=== PATIENT | female | born 1955 | race Caucasian/White ===

== ENCOUNTER → 2017-07-08 | Outpatient (CLI) | payer MEDICARE, MEDICAID ==
[~2017-07-08] MED LIST: ALBU8.5H12 IH; ASPI81TA94 PO; ATOR40TA69 PO; BACDS PO; CEPH-312 PO; CLO5 PO; CLOP75TA PO; CYCL10TA29 PO; CYCL5.5D IO; DIA5 PO; DIAZ-1 PO; Docusate Sodium PO; ENAL2.5T52 PO; EPIN0.3P15 IM; ESC10 PO; ESCI20TA38 PO; HYDR-3724 PO; HYDR-4309 PO; IBU600 PO; IBUP-56 PO; LOR5 PO; LOR5/325 PO; METO-224 PO; METR-1 PO; MID PO; MULT-806 PO; MULT-820 PO; MULT-977 PO; NIC21T TOP; NICO-180 TD; NITR0.4T3 SL; NO MEDS AT THIS TIME; OXYGENHOME INH; PANT40TA65 PO; PER PO; PRE20 PO; RANI-324 PO; ROBC PO; SULF-198 PO; THIA100T55 PO; TRAZ-133 PO; TRAZ50 PO; UBID50CA24 PO; VAR1 PO; VARE1TAB4 PO
[2017-07-08 12:09] LABS: PLATELET COUNT, AUTOMATED 325 K/uL (150-450)
== END ==
LOC: LAB 11:02
PROVIDERS: ATTEND Nurse Practitioner Family
DX: R10.13 Epigastric pain (principal); K21.9 Gastro-esophageal reflux disease without esophagitis
CPT/HCPCS: 36415; 82040; 82150; 82247; 82310; 82374; 82435; 82565; 82947; 83690; 84075; 84132; 84155; 84295; 84450; 84460; 84520; 85025; 86677

== ENCOUNTER → 2017-07-16 | Outpatient (CLI) | payer MEDICARE, MEDICAID ==
[~2017-07-16] MED LIST changes: -RANI-324 PO; +RANI-366 PO
--- NOTE | 2017-07-16 17:08 | RADIOLOGY IMAGING REPORT ---
FACILITY: [facility] - [place], [place] PATIENT NAME: Colleen Pastor : 1955 MR: [id number] V: [id number] EXAM DATE: ORDERING PHYSICIAN: GRUPO MENDOZA TECHNOLOGIST: Location: [facility] Patient: Colleen Pastor : 1955 Visit/Account:[id number] Date of Sevice: 07/16/2017 THYROID HISTORY: Right thyroid nodule COMPARISON: May 11, 2015 FINDINGS: SIZE: Normal. Right lobe: 4.8 x 1.7 x 1.4 cm Left lobe: 4.8 x 1.3 x 1.5 cm Isthmus: 1 mm PARENCHYMA: Homogeneous. NODULES: Right lobe: * In the mid to inferior right lobe there is a relatively well-circumscribed hypoechoic nodule measu ring 1.2 x 1.2 x 0.8 cm Left lobe: * Several tiny cysts are identified in the inferior left lobe Isthmus: * None discrete. VASCULARITY: Within normal limits. ADDITIONAL FINDINGS: None. IMPRESSION: In the mid to inferior right lobe there is a well-circumscribed hypoechoic nodule measuring 1.2 x 1.2 x 0.8 cm that appears relatively unchanged in size when compared the prior study REFERENCE: 2015 [place] [employer] Management Guidelines for Adult Patients with Thyroid Nodules and D ifferentiated Thyroid Cancer: The [place] [employer]roid [employer] Guidelines Task Force on Thyroid Nodul es and Differentiated Thyroid Cancer. SONOGRAPHIC PATTERNS: * Benign: Purely cystic nodules (no solid component); estimated risk of malignancy <1 percent; no bi opsy recommended. * Very Low Suspicion: Spongiform or partially cystic nodules without any of the sonographic features described in low, intermediate, or high suspicion patterns; estimated risk of malignancy <3 percent; consider FNA at > 2 cm (Observation without FNA is also a reasonable option). * Low Suspicion: Isoechoic or hyperechoic solid nodule, or partially cystic nodule with eccentric so lid areas, without microcalcification, irregular margin or ETE (extra-thyroidal extension), or taller than wide shape; estimated risk of malignancy 5-10 percent; recommend FNA at >1.5 cm. * Intermediate Suspicion: Hypoechoic solid nodule with smooth margins without microcalcifications, E TE (extra-thyroidal extension), or taller than wide shape; estimated risk of malignancy 10-20 percent ; recommend FNA at > 1 cm. * High Suspicion: Solid hypoechoic nodule or solid hypoechoic component of a partially cystic nodule with one or more of the following features: irregular margins (infiltrative, microlobulated), microc alcifications, taller than wide shape, rim calcifications with small extrusive soft tissue component, evidence of ETE (extra-thyroidal extension); estimated risk of malignancy >70-90 percent; recommend FNA at > 1 cm. NOTES: * Although a sonographically suspicious subcentimeter thyroid nodule without evidence of extrathyroi johann extension or sonographically suspicious lymph nodes may be observed with close sonographic follow -up rather than pursuing immediate FNA, patient age and preference may modify decision-making. A > 50% interval increase in nodule volume and/or development of new suspicious sonographic features are felt to be a valid reasons for potential re-aspiration of a nodule previously shown to have benig n FNA cytology. Report Dictated By: Gisel Oscar MD at 07/16/2017 4:56 PM Report E-Signed By: Gisel Oscar MD at 07/16/2017 5:04 PM WSN:[email or web address]
== END ==
LOC: US 01:58
PROVIDERS: ATTEND Nurse Practitioner Family
DX: E04.9 Nontoxic goiter, unspecified (principal)
CPT/HCPCS: 76536

== ENCOUNTER → 2017-09-25 | Outpatient (CLI) | payer MEDICARE, MEDICAID ==
[2017-09-25 11:41] LABS: PLATELET COUNT, AUTOMATED 270 K/uL (150-450)
[2017-09-25 11:49] LABS: INR 0.94
[2017-09-25 12:31] LABS: LDL CHOLESTEROL 74 mg/dl
== END ==
LOC: LAB 11:04
PROVIDERS: ATTEND Nurse Practitioner Family
DX: E78.5 Hyperlipidemia, unspecified (principal); G47.33 Obstructive sleep apnea (adult) (pediatric); Z99.89 Dependence on other enabling machines and devices; Z72.0 Tobacco use; Z79.899 Other long term (current) drug therapy
CPT/HCPCS: 36415; 82040; 82247; 82310; 82374; 82435; 82465; 82565; 82947; 83718; 84075; 84132; 84155; 84295; 84450; 84460; 84478; 84520; 85025; 85610

== ENCOUNTER → 2017-10-19 | Outpatient (CLI) | payer MEDICARE, MEDICAID ==
--- NOTE | 2017-10-19 12:00 | RADIOLOGY IMAGING REPORT ---
FACILITY: [facility] PATIENT NAME: Colleen Pastor : 1955 MR: [id number] V: [id number] EXAM DATE: ORDERING PHYSICIAN: SUSANNAH ELIZALDE TECHNOLOGIST: Location: [facility] - [place] Patient: Colleen Pastor : 1955 Visit/Account:[id number] Date of Sevice: 10/19/2017 CAROTID HISTORY: Fall, hemisphere carotid artery syndrome, appear hyper cholesterolemia COMPARISON: None. FINDINGS: Grayscale, duplex and color Doppler interrogation of the extracranial carotid and vertebral arteries was performed bilateral. On the right, peak systolic velocities within the common and internal carotid arteries are 106 and 11 1 cm/sec respectively. A small amount of plaque identified at the right carotid bulb and a small shanda d plaque identified in the proximal right internal carotid artery. Antegrade flow within the common, internal and external carotid arteries as well as vertebral artery. ICA/CCA ratio 1.1. On the left, peak systolic velocities within the common and internal carotid arteries are 109 and 89 cm/sec respectively. Small amount of plaque identified at the left carotid bulb and proximal left in ternal carotid artery. Antegrade flow within the common, internal and external carotid arteries as w ell as vertebral artery. ICA/CCA ratio 1. IMPRESSION: Small amount of plaque identified at the carotid bulbs and proximal internal carotid arteries althoug h no hemodynamically significant lesions identified by velocity criteria Velocity criteria are extrapolated from diameter data as defined by the Society of Radiologists in [facility] Consensus Conference Radiology 2003; 229;340-346 Report Dictated By: Gisel Oscar MD at 10/19/2017 11:55 AM Report E-Signed By: Gisel Oscar MD at 10/19/2017 11:57 AM WSN:[email or web address]
== END ==
LOC: US 01:09
PROVIDERS: ATTEND Internal Medicine
DX: I65.23 Occlusion and stenosis of bilateral carotid arteries (principal); I07.1 Rheumatic tricuspid insufficiency; I34.0 Nonrheumatic mitral (valve) insufficiency
CPT/HCPCS: 93306; 93880

== ENCOUNTER → 2017-12-28 | Outpatient (CLI) | payer MEDICARE, MEDICAID | LOC: LAB 09:34 | PROVIDERS: ATTEND Nurse Practitioner Family | DX: Z11.59 Encounter for screening for other viral diseases (principal) | CPT/HCPCS: 36415; G0472; 86803 ==

== ENCOUNTER 2018-03-04 08:00 | Outpatient (RCR) | payer MEDICARE, MEDICAID ==
[~2018-03-04 08:00] MED LIST changes: -HYDR-4309 PO; +HYDR-653 PO
[2018-03-12] MEDS ORDERED: IOPAMIDOL 76% 50 ML INFUS BTL 100 ML ONE (08:53)
--- NOTE | 2018-03-12 10:03 | RADIOLOGY IMAGING REPORT ---
FACILITY: [facility] - [place] PATIENT NAME: Colleen Pastor : 1955 MR: [id number] V: [id number] EXAM DATE: ORDERING PHYSICIAN: GRUPO MENDOZA TECHNOLOGIST: Location: [facility] Patient: Colleen Pastor : 1955 Visit/Account:[id number] Date of Sevice: 03/12/2018 CHEST W CONTRAST History: Pulmonary nodule follow-up TECHNIQUE: Contiguous axial images were performed through the chest to the level of the adrenal gla nds following the administration of IV contrast. Coronal and sagittal reformatting was also perform ed.Dose Lowering Technique One of the following dose optimization techniques was utilized in the performance of this exam: Autom ated exposure control; adjustment of the mA and/or kV according to the patient's size; or use of an i terative reconstruction technique. Specific details can be referenced in the facility's radiology C T exam operational policy. Contrast: 75 mL Isovue-370 COMPARISON STUDIES: January 07, 2017. Lungs / Pleura: Mild multisegmental scarring has remained stable.. Previously noted 4 mm noncalcified nodule left lower lobe has remained stable best seen on image 72 o f series 3 Previously noted 4 mm posterior right lower lobe nodule now measures 3 mm. No new pulmonary nodules are identified Mediastinum/nodes: Small pretracheal and AP window and hilar lymph nodes have remained stable. Heart and vessels: Coronary artery stent Musculoskeletal / Body wall: Gentle scoliosis of the thoracic spine with spondylotic changes again seen incompletely imaged are postsurgical changes of the lower cervical spine Upper abdomen: Small hiatal hernia IMPRESSION: Small bilateral lower lobe pulmonary nodules have remained stable and are of doubtful significance Mild mediastinal and hilar adenopathy has remained stable Small hiatal hernia Report Dictated By: Gisel Oscar MD at 03/12/2018 9:52 AM Report E-Signed By: Gisel Oscar MD at 03/12/2018 10:00 AM WSN:GARRISON
== END 2018-03-12 18:00 | disposition home or self-care (01) ==
LOC: CT 08:00 → EDSTATUS 10:46 → CT 10:47
PROVIDERS: ATTEND Nurse Practitioner Family
DX: K44.9 Diaphragmatic hernia without obstruction or gangrene (principal); R91.8 Other nonspecific abnormal finding of lung field; M41.84 Other forms of scoliosis, thoracic region; Z95.5 Presence of coronary angioplasty implant and graft
CPT/HCPCS: 36415; 71260; 82565; Q9967

== ENCOUNTER → 2018-09-08 | Outpatient (CLI) | payer MEDICARE, MEDICAID ==
[~2018-09-08] MED LIST changes: -RANI-366 PO; +RANI-54 PO
[2018-09-08 05:07] LABS: PLATELET COUNT, AUTOMATED 305 K/uL (150-450)
[2018-09-08 05:13] LABS: LDL CHOLESTEROL 74 mg/dl
== END ==
LOC: LAB 04:03
PROVIDERS: ATTEND Nurse Practitioner Family
DX: R63.4 Abnormal weight loss (principal); E78.5 Hyperlipidemia, unspecified; M79.606 Pain in leg, unspecified; I25.10 Atherosclerotic heart disease of native coronary artery without angina pectoris; J44.9 Chronic obstructive pulmonary disease, unspecified
CPT/HCPCS: 36415; 82040; 82247; 82310; 82374; 82435; 82465; 82565; 82607; 82947; 83036; 83718; 84075; 84132; 84155; 84295; 84443; 84450; 84460; 84478; 84520; 85025

== ENCOUNTER → 2018-10-22 | Outpatient (CLI) | payer MEDICARE, MEDICAID ==
[~2018-10-22] MED LIST changes: +IOPAMIDOL 76% 100 ML INFUS BTL 100 ML ONE
--- NOTE | 2018-10-22 11:21 | RADIOLOGY IMAGING REPORT ---
FAC[place] [facility] [place]IENT NAME: Colleen Pastor : 1955 MR: [id number] V: [id number] EXAM DATE: ORDERING PHYSICIAN: GRUPO MENDOZA TECHNOLOGIST: Location: [facility] Patient: Colleen Pastor : 1955 Visit/Account:[id number] Date of Sevice: 10/22/2018 CT CHEST (CONTRAST) History: 63-year-old female with unexplained weight loss, pulmonary nodules and a history of smoking. Technique: Thin axial CT images were obtained through the chest following the injection of intravenou s contrast using Isovue-370 75 cc.Coronal and sagittal reformations were then created. One of the following dose optimization techniques was utilized in the performance of this exam: Autom ated exposure control; adjustment of the mA and/or kV according to the patient's size; or use of an i terative reconstruction technique. Specific details can be referenced in the facility's radiology C T exam operational policy. Comparison: CT chest March 12, 2018. Findings: Lower neck: No supraclavicular lymphadenopathy. Thyroid gland/mediastinum/hilum/lymph nodes:The thyroid gland is normal and there is no mediastinal o r hilar lymphadenopathy. There may be a small distal hiatal hernia. Heart and pericardium: Unremarkable. Coronary calcification is identified. Lungs/pleura: There is hyperinflation the lungs. Areas of lucency in the upper lung us bilateral ly are suggestive central lobar emphysema. Previous noted scarring in the lingula and right middle l obe is stable. There is new linear density in the lung bases that has the appearance of atelectasis and/or scar. It is slightly more prominent than was noted on the prior exam. *The previously noted 3 mm lung nodule in the right lower lobe is stable. The previously noted left lower lobe lung nodule is not as well seen. *: No new lung nodules are identified. Chest Wall: No findings of a chest wall mass. No lymphadenopathy or surgical clips in the axillary regions. Bones/soft tissues:Negative Upper abdomen: There is no finding of a mass in the upper abdomen. The liver and adrenal glands are unremarkable. IMPRESSION: 1. Findings suggestive of prior smoking manifesting as changes of central lobar emphysema and hyperi nflation of the lungs. There is atelectasis is or scarring as described above. There is no new mass . 2. Stable nodule in the right lower lobe is again seen. The previously noted left lower lobe lung n odule is no longer seen. 3. Small hiatal hernia. Report Dictated By: Jose Pascual MD at 10/22/2018 11:06 AM Report E-Signed By: Jose Pascual MD at 10/22/2018 11:12 AM WSN:[email or web address]
--- NOTE | 2018-10-26 10:45 | RADIOLOGY IMAGING REPORT ---
FACILITY: [facility] PATIENT NAME: ROXANNA KIMBLE : [id number] MR: [id number] V: [id number] EXAM DATE: [id number] ORDERING PHYSICIAN: GRUPO MENDOZA TECHNOLOGIST: Isatu Garcia PROCEDURE: BILATERAL DIGITAL SCREENING MAMMOGRAM WITH CAD ASSISTED INTERPRETATION & 3D TOMOSYNTHESIS REASON FOR STUDY: Screening. COMPARISON: Baseline Study. VIEWS OBTAINED: 2D & 3D full field CC & MLO projections. BREAST DENSITY: The breasts have scattered fibroglandular parenchymal densities. MAMMOGRAM FINDINGS: There is a benign appearing asymmetry in the posterior lateral Left breast with a mixture of fatty and fibroglandular densities. No mammographic findings concerning for malignancy. IMPRESSION: BIRADS 2: Benign finding. DIAGNOSTIC CATEGORY 2--BENIGN FINDING. RECOMMENDATIONS: ROUTINE MAMMOGRAM AND CLINICAL EVALUATION IN 1YR. Dictated by: lFaco José on 10/26/2018 at 8:48 Transcribed by: COLETTE on 10/26/2018 at 9:50 Approved by: Flaco José on 10/26/2018 at 10:41 [facility]
== END ==
LOC: CT 01:15
PROVIDERS: ATTEND Nurse Practitioner Family
DX: Z12.31 Encounter for screening mammogram for malignant neoplasm of breast (principal); R63.4 Abnormal weight loss; R91.8 Other nonspecific abnormal finding of lung field; R05 Cough; F17.210 Nicotine dependence, cigarettes, uncomplicated; K44.9 Diaphragmatic hernia without obstruction or gangrene
CPT/HCPCS: 71260; 77063; 77067; Q9967